=== PATIENT | male | born 1990 | race Caucasian/White ===

== ENCOUNTER 2021-02-19 12:31 | Emergency (ER) | payer OTHER, SELFPAY ==
--- NOTE | ~2021-02-19 | XR_ITS ---
EXAMINATION: XR knee RT min 4V DATE: 02/19/2021 13:08 INDICATION: Right knee pain. TECHNIQUE: 5 views of right knee were obtained. COMPARISON: None. FINDINGS: Bone alignment is normal. No fracture. There is mild osteoarthritis of medial and patellofe moral compartments characterized by tiny marginal osteophytes. No knee joint effusion. IMPRESSION: 1. Mild right knee osteoarthritis. Reviewed, dictated and finalized at location B.
[2021-02-19 12:40] VITALS: BP 121/71; PULSE 82; RESP 18; TEMP 37.1; O2SAT 99
--- NOTE | 2021-02-19 12:53 | ED.LOWEXIN ---
HPI - Extremity Injury (Lower) General Chief Complaint: Extremity Injury, Lower Stated Complaint: Right Knee won't straighten Time Seen by Provider: 02/19/21 12:54 Source: patient and RN notes reviewed Mode of arrival: ambulatory Limitations: no limitations History of Present Illness HPI Narrative: 30 year old male presents to [facility] care with limping gait and using walking stick with 3 day history of pain to inside or under the knee cap. Patient states it is difficult to straighten his leg at the knee, states that pain is sharp and rates it a 9/10. Patient is unsure of specific injury to his right knee thinks he may of twisted his knee. Patient is under physician care for spinal injury at work in 2019 and has been receiving steroid injections to his back with possible spinal fusion surgery in future. Patient states that he has used ice and heat to his right knee, is afraid to take nsaids due to only having one kidney. MD complaint: other (right knee pain) Onset (ago): day(s) (3) Severity scale (1-10): 9 Exacerbating factors: weight bearing and other (trying to straighten leg) Context: other (possibly twisted) Treatments prior to arrival: cold therapy and other (heat) Related Data Home Medications Medication Instructions Recorded Confirmed cyclobenzaprine 5 mg PO HS 02/19/21 02/19/21 Allergies Allergy/AdvReac Type Severity Reaction Status Date / Time No Known Allergies Allergy Verified 02/19/21 12:55 Review of Systems Review of Systems: Narrative: CONSTITUTIONAL: Denies fever, chills, or sweats. EYES: Denies visual changes, redness, or discharge. ENT: Denies rhinorrhea, congestion, sore throat, or otalgia. CARDIOVASCULAR: Denies chest pain, palpitations, or edema. RESPIRATORY: Denies cough or dyspnea. GASTROINTESTINAL: Denies abdominal pain, nausea, vomiting, or diarrhea. GENITOURINARY: Denies dysuria or hematuria. SKIN: Denies rash or itching. MUSCULOSKELETAL: Positive history of chronic back pain from spinal injury in 2019, positive for right knee joint pain, or myalgia. NEUROLOGIC: Denies headache, numbness, or weakness. PSYCHIATRIC: Denies anxiety or depression. All systems reviewed & are unremarkable except as noted in HPI and below PMFSH Past Medical History Medical History (Updated 02/22/21 @ 08:55 by Gladys Puckett NP) Congenital absence of one kidney Spinal injury Family History Family History (Updated 02/22/21 @ 08:54 by Gladys Puckett NP) Other No significant family history Social History Social History (Updated 02/22/21 @ 08:54 by Gladys Puckett NP) Smoking packs per day: 0.25 Smoking cigarettes per day: 5.0 Years smoked: 1 Smoking pack-years: 0.25 Smoking status: Current every day smoker Tobacco type: cigarettes Alcohol intake: current Alcohol use details: rare social Substance use: never Living arrangements: with family Gender identity (if verbalized by the patient): Male Comments At time of signature, agree with nursing past medical, surgical, social and family history. There is no relevant family history pertinent to the presenting complaint Exam Narrative: Exam Narrative: GENERAL: Well-appearing, well-nourished, obese,and in no acute distress. HEAD: Normocephalic, atraumatic. EYES: PERRLA and EOMI. ENT: Nares clear, no rhinorrhea or epistaxis. Mucous membranes moist.TM's normal with good light reflex, throat pink NECK: Supple.no lymphadenopathy CHEST: Clear to auscultation. No respiratory distress.SAO2 99% on room air. HEART: Regular rate and rhythm. No murmur heard. Normal peripheral pulses. ABDOMEN: Soft, nontender, nondistended, normal active bowel sounds. EXTREMITIES: Normal range of motion. No edema, with exception to his right knee which is painful with acute pain with ambulation and upon trying to straighten his knee out, patient denies any tingling or numbness to his right leg or foot, strong pedal and posterior tibial pulses, pain noted wit
== END 2021-02-19 13:40 | disposition home or self-care (01) ==
PROVIDERS: Emergency Provider Registered Nurse; PCP Nurse Practitioner Family
DX: M25.561 Pain in right knee (principal); Q60.0 Renal agenesis, unilateral; F17.210 Nicotine dependence, cigarettes, uncomplicated
CPT/HCPCS: 73564; 99213; G0463

== ENCOUNTER 2022-06-13 16:10 | Emergency (ER) | payer OTHER, SELFPAY ==
[2022-06-13 16:16] VITALS: BP 122/72; PULSE 76; RESP 16; TEMP 37.2; O2SAT 98
--- NOTE | 2022-06-13 16:45 | ED.DENTAL ---
HPI - Dental/Oral General Chief complaint: Dental/Oral Stated complaint: tooth infection Time Seen by Provider: 06/13/22 16:45 Source: patient, RN notes reviewed and old records reviewed Mode of arrival: ambulatory Limitations: no limitations History of Present Illness HPI Narrative: 31-year-old male who presents to [facility] care with complaints of dental pain to the left third lower molar with noted decay and swelling around gum with hole in tooth which has broken more 2 weeks ago. Patient reports he has been taking some Tylenol and ibuprofen for his discomfort. Patient states has appointment August 03 in [place] for possible extraction. Patient has no facial swelling at this time, denies any swallowing difficulty no trismus noted. MD Complaint: tooth pain Location: Tooth # (17) Onset (ago): week(s) (1) Severity scale (1-10): 7 Treatment prior to arrival: oral analgesic Related Data Allergies Allergy/AdvReac Type Severity Reaction Status Date / Time No Known Allergies Allergy Verified 06/13/22 16:39 Review of Systems Review of Systems: CONSTITUTIONAL: Denies fever, chills, or sweats. EYES: Denies visual changes, redness, or discharge. Positive for dental pain ENT: Denies rhinorrhea, congestion, sore throat, or otalgia. CARDIOVASCULAR: Denies chest pain, palpitations, or edema. RESPIRATORY: Denies cough or dyspnea. GASTROINTESTINAL: Denies abdominal pain, nausea, vomiting, or diarrhea. GENITOURINARY: Denies dysuria or hematuria. SKIN: Denies rash or itching. MUSCULOSKELETAL: Denies back pain, joint pain, or myalgia. NEUROLOGIC: Denies headache, numbness, or weakness. PSYCHIATRIC: Denies anxiety or depression. All systems reviewed & are unremarkable except as noted in HPI and below PMFSH Past Medical History Medical History (Updated 06/13/22 @ 17:35 by Gladys Puckett NP) Congenital absence of one kidney Spinal injury Surgical History Surgical History (Updated 06/13/22 @ 17:35 by Gladys Puckett NP) History of surgical removal of testicle Left Family History Family History Other No significant family history Social History Social History (Updated 06/13/22 @ 17:36 by Gladys L. Italo, PACKAGE LINE RELIEF OPERATOR) Smoking packs per day: 0.5 Smoking cigarettes per day: 10.0 Years smoked: 2 Smoking pack-years: 1.00 Smoking status: Current every day smoker Tobacco type: cigarettes Alcohol intake: current Alcohol use details: rare social Substance use: never Gender identity (if verbalized by the patient): Male Comments At time of signature, agree with nursing past medical, surgical, social and family history. There is no relevant family history pertinent to the presenting complaint Exam Narrative: GENERAL: Well-appearing, well-nourished, and in no acute distress. HEAD: Normocephalic, atraumatic. EYES: PERRLA and EOMI. ENT: Nares clear, no rhinorrhea or epistaxis. Mucous membranes moist. TMs normal with good light reflex throat pink with no swelling uvula midline. Left lower #17 tooth with hole in tooth and some swelling around the gum, no trismus no Alli angina with no pain or difficulty with swallowing, no difficulty with breathing or any facial swelling. NECK: Supple.no lymphadenopathy CHEST: Clear to auscultation. No respiratory distress.SAO2 98% on room air HEART: Regular rate and rhythm. No murmur heard. Normal peripheral pulses. ABDOMEN: Soft, nontender, nondistended, normal active bowel sounds. EXTREMITIES: Normal range of motion. No edema. SKIN: Warm, dry, no rash. NEURO: No focal deficits. Alert and oriented x3. Course Course Level of Care: Express Care Visit Vital Signs Vital signs: Vital Signs Temperature 37.2 C 06/13/22 16:16 Pulse Rate 76 06/13/22 16:16 Respiratory Rate 16 06/13/22 16:16 Blood Pressure 122/72 06/13/22 16:16 Pulse Oximetry 98 06/13/22 16:16 Oxygen Delivery Room Air 06/13/22 16:
== END 2022-06-13 17:04 | disposition home or self-care (01) ==
PROVIDERS: Emergency Provider Registered Nurse
DX: K02.9 Dental caries, unspecified (principal); Q63.9 Congenital malformation of kidney, unspecified; F17.210 Nicotine dependence, cigarettes, uncomplicated
CPT/HCPCS: 99213; G0463

== ENCOUNTER 2024-12-05 12:56 | Emergency (ER) | payer OTHER, SELFPAY ==
[2024-12-05 13:19] VITALS: BP 133/72; PULSE 73; RESP 15; TEMP 36.5; O2SAT 100
--- NOTE | 2024-12-05 15:10 | ED.GENADULT ---
HPI - General Adult General Chief complaint: Eye Problems Stated complaint: piece of wood in the eye Time Seen by Provider: 12/05/24 14:02 History of Present Illness HPI narrative: This is a 33-year-old male presenting with right-sided eye irritation. Patient was sawing wood when he felt like he got sawdust in his eye. He has now had some irritation and tearing. No decreased visual acuity. No other injuries. Related Data Allergies Allergy/AdvReac Type Severity Reaction Status Date / Time No Known Allergies Allergy Verified 12/05/24 13:24 [facility] Past Medical History Medical History Congenital absence of one kidney Spinal injury Surgical History Surgical History History of surgical removal of testicle Left Family History Family History Other No significant family history Social History Social History Smoking packs per day: 0.5 Smoking cigarettes per day: 10.0 Years smoked: 2 Smoking pack-years: 1.00 Smoking status: Current every day smoker Tobacco type: cigarettes Alcohol intake: current Alcohol use details: rare social Substance use: never Living arrangements: with family Gender identity (if verbalized by the patient): Male Exam Narrative: APPEARANCE: No apparent distress. Head: atraumatic. EYES: EOMI, NOSE: Atraumatic NECK: Trachea midline RESPIRATORY: No increased rate of breathing CARDIOVASCULAR: RRR, ABDOMINAL: Non-distended MUSCULOSKELETAl: No obvious deformities NEURO: Alert. Moving 4/4 extremities SKIN:: Warm, dry. Normal color PSYCHIATRIC: Normal affect Eye exam: Visual acuity 20/15 bilaterally, IOP 20 bilaterally, no fluorescein uptake or Dean sign, no foreign bodies noted Course Vital Signs Vital signs: Vital Signs Temperature 97.7 F 12/05/24 13:19 Pulse Rate 73 12/05/24 13:19 Respiratory Rate 15 12/05/24 13:19 Blood Pressure 133/72 12/05/24 13:19 Pulse Oximetry 100 12/05/24 13:19 Oxygen Delivery Room Air 12/05/24 13:19 Temperature 97.7 F 12/05/24 13:19 Pulse Rate 73 12/05/24 13:19 Respiratory Rate 15 12/05/24 13:19 Blood Pressure 133/72 12/05/24 13:19 Pulse Oximetry 100 12/05/24 13:19 Oxygen Delivery Room Air 12/05/24 13:19 Medical Decision Making MDM Narrative Medical decision making narrative: -Course: 33-year-old presenting with foreign body sensation in his right eye after some using a saw on plywood. No foreign bodies noted on exam including eyelid inversion. Visual acuity is normal. No fluorescein uptake. IOP equal bilaterally. Eye was flushed with 1 L of normal saline. Patient be discharged on Ocuflox with close Ophthalmology follow-up. -DDX includes but is not limited to: Corneal abrasion, foreign body, eye irritation Vital Signs Vital Signs: Vital Signs Temperature 97.7 F 12/05/24 13:19 Pulse Rate 73 12/05/24 13:19 Respiratory Rate 15 12/05/24 13:19 Blood Pressure 133/72 12/05/24 13:19 Pulse Oximetry 100 12/05/24 13:19 Oxygen Delivery Room Air 12/05/24 13:19 Temperature 97.7 F 12/05/24 13:19 Pulse Rate 73 12/05/24 13:19 Respiratory Rate 15 12/05/24 13:19 Blood Pressure 133/72 12/05/24 13:19 Pulse Oximetry 100 12/05/24 13:19 Oxygen Delivery Room Air 12/05/24 13:19 Discharge Plan Discharge Clinical Impression: Eye irritation Patient Disposition: Home, Self-Care Condition: Stable Instructions: Antibiotic Form, Eye Foreign Body (ED) Additional Instructions: Please use the antibiotic eyedrops as instructed. Please follow-up with the road grader operator listed below in the next 24-48 hours. Please return if you develop severe eye pain or changes in his vision. [facility] Patient Language: Jordanian Prescriptions: New ofloxacin [Ocuflox] 0.3 % drops See Rx Instructions .ROUTE .COMPLEX Qty: 10 0RF Rx Instructions: put 1-2 drps into affected eye(s) every 2-4 h x 2 days, then 1-2 drps 4 times/day days 3-7 No Action penicillin V potassium 500 mg tablet 500 mg PO Q12H 10 Days Qty: 20 0RF chlorhexidine gluconate [Peridex] 0.12 % mouthwash 15 ml mucous membrane BID Qty: 473 0RF Follow-up/Referrals: PHYSICIAN NOT ON STAFF,NONSTAFF [Primary Care Provider] -
--- NOTE | 2024-12-05 15:21 | PC.NURSE ---
pt eye is being irrigated with the fluids via morgans lens per EDP verbal order
== END 2024-12-05 15:54 | disposition home or self-care (01) ==
PROVIDERS: Emergency Provider Emergency Medicine
DX: H57.89 Other specified disorders of eye and adnexa (principal); F17.210 Nicotine dependence, cigarettes, uncomplicated; Q60.0 Renal agenesis, unilateral
CPT/HCPCS: 99283; J7030

== ENCOUNTER 2025-08-05 18:48 | Emergency (ER) | payer BC, SELFPAY ==
[2025-08-05 18:48] VITALS: BP 140/80; PULSE 100; RESP 18; TEMP 36.7; O2SAT 100
--- OUTSIDE RECORDS SUMMARY | 2025-08-05 18:50 | XMS_ITS | Clinical Summary ---
Author Organization [facility] Address [address] [place] [id number] Care Team Providers Care Branch Lending Manager Name Role Phone None, Provider MD Primary Care Provider Unavaila ble Allergies No known active allergies Medications No known medications Family History Medical History Relation Comments Diabetes Sister Relation Status Comments Sister Social History Tobacco Use Types Packs/Day Years Used Date Smoking Tobacco: Every Day Cigarettes Smokeless Tobacco: Never Alcohol Use Standard Drinks/Week Comments Yes 0 (1 standard drink = 0.6 oz pur e alcohol) rarely AUDIT-C Answer Date Recorded Frequency of Alcohol Consumption Never 08/28/2019 Average Number of Drinks Not on file 019 Frequency of Binge Drinking Not on file 08/10 Sex and Gender Information Value Date Recorded Sex Assigned at Not on file 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 Gender Identity Not on file Sexual Orientation Not on file Last Filed Vital Signs Vital Sign Reading Time Taken Comments Blood Pressure 128/72 04/15/2020 6:00 PM CDT Pulse 84 04/15/2020 5:51 PM CDT Temperature 36.3 C (97.4 F) 04/15/2020 5:51 PM CDT Respiratory Rate 16 04/15/2020 5:51 PM CDT Oxygen Saturation 100% 04/15/2020 6:15 PM CDT Inhaled Oxygen Concentration - - Weight 127 kg (280 lb) 04/15/2020 5:51 PM CDT Height 180.3 cm (5' 11) 04/15/2020 5:51 PM CDT Body Mass Index 39.05 04/15/2020 5:51 PM CDT Plan of Treatment Health Maintenance Due Date Last Done Comments Annual Physical 1993 Hepatitis C 2008 DTaP, Tdap and Td Vaccines ( 1 - Tdap) 2009 Hepatitis B Vaccines (1 of 3 - 19+ 3-dose series) 2009 Pneumococcal Vaccine: Pediat rics (0 to 5 Years) and At-Risk Patients (6 to 49 Years) (1 of 2 - PCV) 2009 HPV Vaccines (1 - 3-dose SCD M series) 2017 COVID-19 Vaccine ( - 2024-2 6 season) 2025 Influenza Adult (#1) 2025 Hepatitis A Vaccines Aged Out No long er eligible based on patient's age to complete this topic Meningococcal B Vaccine Aged Out No l onger eligible based on patient's age to complete this topic Meningococcal Vaccine Aged Out No carlito chantel eligible based on patient's age to complete this topic RSV Immunizations Under 20 Months Aged Out No longer eligible based on patient's age to complete this topic Insurance [employer] [place] MEDICA[place] Care Teams Branch Lending Manager Relationship Specialty Start Date End Date None, Provider, PCP - General 04/15/20
--- NOTE | 2025-08-05 18:57 | ED.GENADULT ---
HPI - General Adult General Chief complaint: Skin/Abscess/Foreign Body Stated complaint: spider bite Time Seen by Provider: 08/05/25 18:57 Source: patient Mode of arrival: ambulatory Limitations: no limitations History of Present Illness HPI narrative: 34 years old white male came to the ED with a scratch at the right wrist noticed few hour prior to arrival, patient is not sure if the scratch was related to his physical work today or possible spider bite. Patient noticed brown recluse spiders at work today. Patient denies any fever, pain, chills, nausea, vomiting, abdominal pain or diaphoresis. Related Data Home Medications ?Medication ?Instructions ?Recorded ?Confirmed ?Last Taken ?Type No Home Medications 08/05/25 08/05/25 Unknown History Allergies Allergy/AdvReac Type Severity Reaction Status Date / Time No Known Allergies Allergy Verified 08/05/25 18:51 Review of Systems Review of Systems: All systems reviewed & are unremarkable except as noted in HPI and below PMFSH Past Medical History Medical History Congenital absence of one kidney Spinal injury Surgical History Surgical History History of surgical removal of testicle Left Family History Family History Other No significant family history Social History Social History Smoking packs per day: 0.5 Smoking cigarettes per day: 10.0 Years smoked: 2 Smoking pack-years: 1.00 Smoking status: Current every day smoker Tobacco type: cigarettes Alcohol intake: current Alcohol use details: rare social Substance use: never Living arrangements: with family Gender identity (if verbalized by the patient): Male Exam Narrative: General appearance: Well-developed, well-nourished Skin: Normal color, 2 mm scratch at the right wrist anteriorly, no erythema, no swelling, no rash, no localized tenderness Vascular: Normal peripheral pulses, normal capillary refill. Musculoskeletal: Normal range of motion, nontender back Neurologic: Alert and oriented ?3, Course Vital Signs Vital signs: Vital Signs Temperature 36.7 C 08/05/25 18:48 Pulse Rate 100 08/05/25 18:48 Respiratory Rate 18 08/05/25 18:48 Blood Pressure 140/80 08/05/25 18:48 Pulse Oximetry 100 08/05/25 18:48 Oxygen Delivery Room Air 08/05/25 18:48 Temperature 36.7 C 08/05/25 18:48 Pulse Rate 100 08/05/25 18:48 Respiratory Rate 18 08/05/25 18:48 Blood Pressure 140/80 08/05/25 18:48 Pulse Oximetry 100 08/05/25 18:48 Oxygen Delivery Room Air 08/05/25 18:48 Medical Decision Making MDM Narrative Medical decision making narrative: Patient concern about the possibility of a spider bite although he does not not have any spider bite like symptoms. Scratch is high likely during his physical work today. Patient was advised to monitor for scratch become back for any new symptoms. Vital Signs Vital Signs: Vital Signs Temperature 36.7 C 08/05/25 18:48 Pulse Rate 100 08/05/25 18:48 Respiratory Rate 18 08/05/25 18:48 Blood Pressure 140/80 08/05/25 18:48 Pulse Oximetry 100 08/05/25 18:48 Oxygen Delivery Room Air 08/05/25 18:48 Temperature 36.7 C 08/05/25 18:48 Pulse Rate 100 08/05/25 18:48 Respiratory Rate 18 08/05/25 18:48 Blood Pressure 140/80 08/05/25 18:48 Pulse Oximetry 100 08/05/25 18:48 Oxygen Delivery Room Air 08/05/25 18:48 Critical Care Time Critical Care Time Critical Care Time: No Discharge Plan Discharge Clinical Impression: Abrasion Patient Disposition: Home Condition: Stable Instructions: Abrasion (ED) Additional Instructions: Return if symptoms are worsening , , continue home medications. Patient Language: [place] Prescriptions: No Action No Home Medications Follow-up/Referrals: Sergio Mi MD [Primary Care Provider, Internal Medicine]
--- OUTSIDE RECORDS SUMMARY | 2025-08-05 19:15 | XMS_ITS | Clinical Summary ---
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
[2025-08-05 19:37] VITALS: BP 134/78; PULSE 80; RESP 20; O2SAT 100
== END 2025-08-05 19:37 | disposition home or self-care (01) ==
LOC: CHSED 19:13
PROVIDERS: Emergency Provider Emergency Medicine; Referring Provider Internal Medicine
DX: S60.811A Abrasion of right wrist, initial encounter (principal); F17.210 Nicotine dependence, cigarettes, uncomplicated; X58.XXXA Exposure to other specified factors, initial encounter
CPT/HCPCS: 99281